=== PATIENT | female | born 1980 | race Caucasian/White ===

== ENCOUNTER 2016-06-21 21:43 | Inpatient (IN) | payer OTHER ==
[~2016-06-21] VITALS: Ht 162.6 cm; Wt 79.0 kg
[~2016-06-21 21:43] MED LIST: BACTDS PO; CEPH-443 PO; CYCL-319 PO; IBUP800T25 PO; MUPI22OI2 TOP; ULT50 PO
[2016-06-21 21:50] VITALS: Ht 162.6 cm; Wt 79.0 kg
[2016-06-21 22:35] LABS: URINE BLOOD (Dip) POC 3+ (NEGATIVE)
--- NOTE | 2016-06-21 22:54 | ERD ---
ER Documentation Chief Complaint Date/Time DATE: 06/21/16 TIME: 22:52 Chief Complaint lower abd pain 30 minutes ago HPI 35-year-old female presents here in emergency department for complaints of lower abdominal pain started 30 minutes prior to arrival. Patient had a miscarriage done 3 weeks ago, had dilatation and curettage done. Patient was supposedly 7 weeks . Today patient started to have lower abdominal pain , dysuria, blood in the urine, spotting. Patient is complaining of lower abdominal pain, cramping pain, accompanying the other symptoms. Patient did not take any medications elevated symptoms. Patient denies any nausea vomiting diarrhea or constipation. Patient denies any fever or chills. ROS All systems reviewed and are negative except as per history of present illness. Medications Home Meds Active Scripts Tramadol HCl (Tramadol HCl) 50 Mg Tablet, 50 MG PO Q4 Y for PAIN, #20 TAB Prov:DOMINGUEZ DAVIDSON PA-C 02/26/16 Cyclobenzaprine Hcl* (Cyclobenzaprine Hcl*) 10 Mg Tablet, 10 MG PO BID, #10 TAB Prov:DOMINGUEZ DAVIDSON PA-C 02/26/16 Ibuprofen* (Motrin*) 800 Mg Tab, 800 MG PO Q6, #30 TAB Prov:DOMINGUEZ DVAIDSON PA-C 02/26/16 Mupirocin* (Bactroban*) 2% -22 Gram Oint...g., 1 APPLIC TOP BID for 7 Days, EA Prov:ALEJANDRO CHANDLER PA-C 12/18/15 Sulfamethoxazole-Trimethoprim* (Bactrim* DS) 800-160 Mg Tab, 1 TAB PO BID for 5 Days, TAB Prov:ALEJANDRO CHANDLER PA-C 12/18/15 Cephalexin* (Keflex*) 500 Mg Capsule, 500 MG PO QID for 5 Days, CAP Prov:ALEJANDRO CHANDLER PA-C 12/18/15 Allergies Allergies: Coded Allergies: No Known Allergy (Verified , 05/31/16) PMhx/Soc Medical and Surgical Hx: pt denies Medical Hx, pt denies Surgical Hx History of Surgery: No Anesthesia Reaction: No Hx Neurological Disorder: No Hx Respiratory Disorders: No Hx Cardiac Disorders: No Hx Psychiatric Problems: No Hx Miscellaneous Medical Probl: No Hx Alcohol Use: No Hx Substance Use: No Hx Tobacco Use: No FmHx Family History: No coronary disease, No diabetes, No other Physical Exam Vitals Vital Signs Date Time Temp Pulse Resp B/P Pulse Ox O2 Delivery O2 Flow Rate FiO2 06/21/16 21:50 97.7 81 20 124/84 100 Physical Exam GENERAL: The patient is well developed and appropriate for usual state of health, in no apparent distress. CHEST: Clear to auscultation bilaterally. There are no rales, wheezes or rhonchi. HEART: Regular rate and rhythm. No murmurs, clicks, rubs or gallops. No S3 or S4. ABDOMEN: Soft, nontender and nondistended. Good bowel sounds. No rebound or guarding. No gross peritonitis. No gross organomegaly or masses. No Wilkes sign or McBurney point tenderness. BACK: No midline or flank tenderness. EXTREMITIES: Equal pulses bilaterally. There is no peripheral clubbing, cyanosis or edema. No focal swelling or erythema. Full range of motion. Grossly neurovascularly intact. NEURO: Alert and oriented. Cranial nerves 2-12 intact. Motor strength in all 4 extremities with 5/5 strength. Sensation grossly intact. Normal speech and gait. SKIN: There is no apparent rash or petechia. The skin is warm and dry. HEMATOLOGIC AND LYMPHATIC: There is no evidence of excessive bruising or lymphedema. No gross cervical, axillary, or inguinal lymphadenopathy. Result Diagram: 06/21/16230406/21/162304 Results 24 hrs Laboratory Tests Test 06/21/16 22:35 06/21/16 23:05 Bedside Urine Blood 3+ Bedside Urine Glucose (UA) Negative Bedside Urine Ketones (LAB) Negative Bedside Urine Leukocyte Esterase (L 1+ Bedside Urine Nitrite (LAB) Positive Bedside Urine Protein (LAB) 2+ Bedside Urine pH (LAB) 6.0 Alanine Aminotransferase (ALT/SGPT) 29IU/L Albumin 3.8g/dl Albumin/Globulin Ratio 1.40 Alkaline Phosphatase 46IU/L Anion Gap 15 Aspartate Amino Transf (AST/SGOT) 46IU/L Basophils # 0.110^3/ul Basophils % 0.3% Blood Morphology Comment Blood Urea Nitrogen 11mg/dl Calcium Level 9.3mg/dl Carbon Dioxide Level 28mmol/L Chloride Level 103mmol/L Creatinine 0.79mg/dl Direct Bilirubin 0.00mg/dl Eosinophils # 0.110^3/ul Eosinophils % 0.3% Globulin 2.70g/dl Glucose Level 108mg/dl Hematocrit 41.0% Hemoglobin 13.7g/dl Indirect Bilirubin 0.3mg/dl Lipase 78U/L Lymphocytes # 2.710^3/ul Lymphocytes % 16.0% Mean Corpuscular Hemoglobin 31.3pg Mean Corpuscular Hemoglobin Concent 33.3g/dl Mean Corpuscular Volume 93.8fl Mean Platelet Volume 7.9fl Monocytes # 0.710^3/ul Monocytes % 4.3% Neutrophils # 13.410^3/ul Neutrophils % 79.1% Nucleated Red Blood Cells # 0.010^3/ul Nucleated Red Blood Cells % 0.0/100WBC Platelet Count 18592^3/UL Potassium Level 4.2mmol/L Red Blood Count 4.3710^6/ul Red Cell Distribution Width 20.3% Sodium Level 142mmol/L Total Bilirubin 0.3mg/dl Total Protein 6.5g/dl Urine Bacteria MANY Urine Bilirubin NEGATIVE Urine Clarity CLOUDY Urine Color KARELY Urine Glucose NEGATIVE% Urine Hemoglobin 3+ Urine Ketones NEGATIVE Urine Leukocyte Esterase 1+ Urine Microscopic RBC >200/HPF Urine Microscopic WBC >200/HPF Urine Nitrite POSITIVE Urine Specific [place] >=1.030 Urine Squamous Epithelial Cells MODERATE Urine Total Protein 2+ Urine Urobilinogen 0.2 E.U./dL Urine pH 6.0 White Blood Count 17.010^3/ul Current Medications Medications (Trade) Dose Ordered Sig/Flavia Route PRN Reason Start Time Stop Time Status Last Admin Dose Admin Ceftriaxone Sodium (Rocephin) 50 ml @ 100 mls/hr ONCE ONCE IVPB 06/22/16 01:00 06/22/16 01:29 IV Rocephin was given here in emergency department for treatment for urinary tract infection. PROCEDURE: US Non-OB Pelvis. TECHNIQUE: Multiple sonographic images of the pelvis were obtained utilizing a transabdominal and endovaginal technique. The images were reviewed on a PACS workstation. COMPARISON: None. FINDINGS: The uterus is visualized and measures 9.6 x 4.7 x 5.9 cm. The endometrial echo complex heterogeneous and measures 9 mm in thickness. Doppler imaging reveals blood flow within the endometrial canal. The right ovary measures 2.8 x 2.4 x 2.3 cm. The left ovary measures 2.6 x 1.8 x 2.1 cm. Blood flow is demonstrated to both ovaries. No adnexal masses are noted. There is no evidence of free fluid. IMPRESSION: 1. Heterogeneous and vascular endometrium, suggestive of retained products of conception. 2. Normal appearance of the ovaries. RPTAT: HTAR .Fortino Alvarado MD, MD Date Time Electronically viewed and signed by .Fortino Alvarado MD, on 06/22/2016 00:32 .R/ CC: KIM ACEVEDO SENIOR MECHANICAL PROJECT ENGINEER Procedures/MDM I spoke with OB Laborist, Dr. Nava, since patient's retained products of conception and urinary tract infection, patient will be admitted to the hospital , possibly needing another dilatation and curettage. As per his recommendation, patient is to be admitted to the hospital under medicine, he will consult in this admission. I spoke with my attending physician, Dr. Levy, patient will be admitted to the hospital, will facilitate patient's admission to the hospital. Patient is stable at this time. Blood cultures were ordered, urine culture, urine GC chlamydia and IV Rocephin as per Dr. Nava's recommendation. Departure Diagnosis: Primary Impression: Retained products of conception Additional Impression: UTI (urinary tract infection) Urinary tract infection type: acute cystitis Hematuria presence: without hematuria Qualified Code: N30.00 - Acute cystitis without hematuria Condition: Fair KIM ACEVEOD NP Jun 21, 2016 22:54
[2016-06-21 23:15] LABS: BASOPHIL # 0.1 10^3/ul (0.0-0.1); BASOPHILS % 0.3 % (0.0-2.0); EOSINOPHILS # 0.1 10^3/ul (0.0-0.5); EOSINOPHILS % 0.3 % (0.0-7.0); HEMOGLOBIN 13.7 g/dl (12.0-16.0); LYMPHOCYTES # 2.7 10^3/ul (0.8-2.9); MEAN CORPUSCULAR HEMOGLOBIN 31.3 pg (29.0-33.0); MEAN CORPUSCULAR HGB CONC 33.3 g/dl (32.0-37.0); MEAN CORPUSCULAR VOLUME 93.8 fl (82.0-101.0); MEAN PLATELET VOLUME 7.9 fl (7.4-10.4); MONOCYTE # 0.7 10^3/ul (0.3-0.9); MONOCYTES % 4.3 % (0.0-11.0); NEUTROPHIL # 13.4 10^3/ul (1.6-7.5); NEUTROPHILS % 79.1 % (39.0-77.0); PLATELET COUNT 275 10^3/UL (140-440); RED BLOOD COUNT 4.37 10^6/ul (4.20-5.40); RED CELL DISTRIBUTION WIDTH 20.3 % (11.5-14.5)
[2016-06-21 23:17] LABS: CONDITION 1; LH ANALYZER COMMENTS 1
[2016-06-21 23:20] LABS: ADD UMIC YES; URINE BILIRUBIN (Dip) NEGATIVE (NEGATIVE); URINE BLOOD (Dip) 3+ (NEGATIVE); URINE GLUCOSE (Dip) NEGATIVE (NEGATIVE); URINE KETONES (Dip) NEGATIVE (NEGATIVE); URINE LEUKOCYTE ESTERASE (Dip) 1+ (NEGATIVE); URINE NITRITE (Dip) POSITIVE (NEGATIVE); URINE TOTAL PROTEIN (Dip) 2+ (NEGATIVE); URINE UROBILINOGEN (Dip) 0.2 E.U./dL (0.1-1.0)
[2016-06-21 23:23] LABS: ALBUMIN 3.8 g/dl (3.3-4.9); POTASSIUM 4.2 mmol/L (3.5-5.1)
[2016-06-21 23:25] LABS: CREATININE 0.79 mg/dl (0.44-1.00)
[2016-06-21 23:26] LABS: ALBUMIN/GLOBULIN RATIO 1.4; BILIRUBIN,INDIRECT 0.3 mg/dl (0-1.1); BILIRUBIN,TOTAL 0.3 mg/dl (0.2-1.3); CALCIUM 9.3 mg/dl (8.4-10.2); TOTAL PROTEIN 6.5 g/dl (6.1-8.1)
[2016-06-21 23:29] LABS: BACTERIA,URINE MANY; SQUAMOUS EPITHELIAL CELL,UR MODERATE; URINE COLOR AMBER (YELLOW); URINE RBCS >200 /HPF (0)
--- NOTE | 2016-06-22 00:33 | RADRPT ---
PROCEDURE: US Non-OB Pelvis. TECHNIQUE: Multiple sonographic images of the pelvis were obtained utilizing a transabdominal and endovaginal technique. The images were reviewed on a PACS workstation. COMPARISON: None. FINDINGS: The uterus is visualized and measures 9.6 x 4.7 x 5.9 cm. The endometrial echo complex heterogeneous and measures 9 mm in thickness. Doppler imaging reveals blood flow within the endometrial canal. The right ovary measures 2.8 x 2.4 x 2.3 cm. The left ovary measures 2.6 x 1.8 x 2.1 cm. Blood flow is demonstrated to both ovaries. No adnexal masses are noted. There is no evidence of free fluid. IMPRESSION: 1. Heterogeneous and vascular endometrium, suggestive of retained products of conception. 2. Normal appearance of the ovaries. RPTAT: HTAR .Fortino Alvarado MD, Date Time Electronically viewed and signed by .Fortino Alvarado MD, on 06/22/2016 00:32 .R/
[2016-06-22] MEDS ORDERED: CEFTRIAXONE 1 GM/50 ML (PMX) 50 ML IVPB ONE (01:00)
[2016-06-22 02:20] VITALS: TEMP 98.3
[2016-06-22 02:45] VITALS: BP 107/55; PULSE 67; RESP 17
[2016-06-22 08:03] VITALS: BP 111/57; RESP 17
[2016-06-22] MEDS ORDERED: HYDROCODONE/APAP (10/325) TAB PO PRN (14:30)
[2016-06-22] MEDS ORDERED: DEXTROSE 5%-LR 1,000 ML IV SCH (14:30)
--- NOTE | 2016-06-22 18:54 | HP ---
Date/Time of Note Date/Time of Note DATE: 06/22/16 TIME: 18:42 Assessment/Plan VTE Prophylaxis VTE Prophylaxis Intervention: ambulation Lines/Catheters IV Catheter Type (from Nrsg): Saline Lock Assessment/Plan Assessment/Plan 35 years old female with pelvic pressure and pain with urination ( Dysuria) and Hematuria, suprapubic tenderness as well as tenderness over the bladder in exam , Abormal UA consistent with Lower UTI She is 3 weeks post D&C. not have vaginal bleeding ever since Pain currently resolved She is afebrile, no evidence of PID or upper UTI exam consistent with lower UTI Us with vascular endometrium? , very unlikely to have retained POC. At this point, patient is stable to be discharged home and to continue antibiotics as out patient Urine Culture and sensitivity was sent Recommended Macrobid 100 mg PO BID x 7 days Advised to double her OCP dose tonight, since she has missed her pills last night with a back up contraception with condoms Recommended to be seen by her Own gas derrick operator in a couple of days after discharge and repeat her pelvic ultrasound again at the time of her next menses for follow up Precaution was given to [facility] ED if she has any fever, chills, abnormal vaginal bleeding, or any other concerns Patient verblalized understanding and agreed to comply HPI/ROS Admit Date/Time Admit Date/Time Jun 22, 2016 at 00:55 Hx of Present Illness I was called to see this patient that was currently admitted to med surg for AWARD CLERK evaluation since medicine team utilization management nurse today had not accepted to be primary and therefore patient was admitted for gas derrick operator. 35 years old s/p D&C for incomplete SAB about 3 weeks ago, presented with complaint of feeling pelvic pressure and pain symptoms as well as bleeding after urination. She denied any fever, chills, nausea, vomiting, abnormal vaginal discharge. Patient was seen in ED and was admitted after she had a pelvic ultrasound that showed thickened vascular endometrium questionable for retained POC. ES is 9 mm , Patient reports she had uneventful D&C about 3 weeks ago. She had light bleeding for one day after D&C. She had seen her AWARD CLERK the day after and was started on OCP. She had been taking OCP since. she did not take her last night pill after she felt pressure and pain symptoms with blood drops noted after she urinated since her symptoms were similar to the symptoms when she had miscarriage. She reports had 8/10 pain last night, but now reports no pain. She denies any vaginal bleeding, still complaining of pressure symptoms with urination. She denied any abnormal vaginal discharge, She has been monogamous and in stable relation ship with her partner for 18 years. She denied any fever, no chills, no flank pain, no nausea. She is hungry and wants to eat. ROS Subjective hx not possible: other (Denies any pain, nausea or any other symptoms ) Constitutional: no complaints Eyes: no complaints ENT: no complaints Respiratory: no complaints Cardiovascular: no complaints Gastrointestinal: no complaints Genitourinary: bleeding, hematuria Musculoskeletal: no complaints Skin: no complaints Neurologic: no complaints Lymphatic: no complaints Psychological: no complaints Immunologic: no complaints PMH/Family/Social Past Medical History Denies any medical problems Past Surgical History D&C x 1 about 3 weeks ago for miscarriage at about 5 weeks [facility]. S/p Breast augmentation section x 3 Family History Significant Family History: no pertinent family hx Social History Denies smoking, drinking alcohol or using any drugs. Alcohol Use: none Smoking Status: Never smoker Drug Use: none Exam/Review of Systems Vital Signs Vitals Vital Signs Date Time Temp Pulse Resp B/P Pulse Ox O2 Delivery O2 Flow Rate FiO2 06/22/16 08:03 98.6 61 17 111/57 97 06/22/16 02:45 Room Air Intake and Output 06/21/16 06/21/16 06/22/16 15:00 23:00 07:00 Intake Total 50 ml Balance 50 ml Exam Constitutional: alert, oriented, well developed Psych: nl mood/affect, no complaints Head: atraumatic, normocephalic Eyes: EOMI, nl conjunctiva, nl lids ENMT: nl external ears & nose, nl lips & teeth, nl nasal mucosa & septum Neck: non-tender, supple Respiratory: clear to auscultation, normal air movement Cardiovascular: nl pulses, regular rate and rhythm Gastrointestinal: nl liver, spleen, other (mild tenderness in the lower abdomen. moderate tenderness at suprapubic noted. SSEL Cevix is closed and long , no abnormal discharge. BME: no cervical motion tenderness, no fullness or tenderness in adnexa. bladder is tender in palpation. ), soft, tender Genitourinary - Female: nl adnexae, nl external genitalia, other (Tenderness in palpation of the bladder from vagina noted. no fulllness or tenderness in adnexa noted. uterus non tender) Extremities: normal pulses Neurological: ELECTRONIC VIDEO GAMES SERVICER II-XII intact, nl mental status, nl speech, nl strength Skin: nl turgor, rash or lesions Labs Result Diagram: 06/21/16230406/21/162304 Medications Medications Current Medications Acetaminophen/ Hydrocodone Bitart 1 tab 1 tab Q6H PRN PO PAIN; Start 06/22/16 at 14:30 Dextrose/Lactated Ringer's (D5-Lr) 1,000 ml @ 125 mls/hr Q8H IV Last administered on 06/22/16t 14:33; Admin Dose 125 MLS/HR; Start 06/22/16 at 14:30 Hematology - 72 Hrs Test 06/21/16 23:05 Basophils # 0.110^3/ul (0.0-0.1) Basophils % 0.3% (0.0-2.0) Blood Morphology Comment Eosinophils # 0.110^3/ul (0.0-0.5) Eosinophils % 0.3% (0.0-7.0) Hematocrit 41.0% (37.0-47.0) # Hemoglobin 13.7g/dl (12.0-16.0) # Lymphocytes # 2.710^3/ul (0.8-2.9) Lymphocytes % 16.0% (15.0-51.0) Mean Corpuscular Hemoglobin 31.3pg (29.0-33.0) Mean Corpuscular Hemoglobin Concent 33.3g/dl (32.0-37.0) Mean Corpuscular Volume 93.8fl (82.0-101.0) Mean Platelet Volume 7.9fl (7.4-10.4) Monocytes # 0.710^3/ul (0.3-0.9) Monocytes % 4.3% (0.0-11.0) Neutrophils # 13.410^3/ul (1.6-7.5) H Neutrophils % 79.1% (39.0-77.0) H Nucleated Red Blood Cells # 0.010^3/ul (0.0-0.0) Nucleated Red Blood Cells % 0.0/100WBC (0.0-0.0) Platelet Count 43953^3/UL (140-440) Red Blood Count 4.3710^6/ul (4.20-5.40) Red Cell Distribution Width 20.3% (11.5-14.5) #H White Blood Count 17.010^3/ul (4.8-10.8) H Chemistry Test 06/21/16 23:05 06/22/16 17:25 Alanine Aminotransferase (ALT/SGPT) 29IU/L (13-69) Albumin 3.8g/dl (3.3-4.9) Albumin/Globulin Ratio 1.40 Alkaline Phosphatase 46IU/L (42-121) Anion Gap 15 (8-16) Aspartate Amino Transf (AST/SGOT) 46IU/L (15-46) Blood Urea Nitrogen 11mg/dl (7-20) Calcium Level 9.3mg/dl (8.4-10.2) Carbon Dioxide Level 28mmol/L (21-31) Chloride Level 103mmol/L (97-110) Creatinine 0.79mg/dl (0.44-1.00) Direct Bilirubin 0.00mg/dl (0.00-0.20) Globulin 2.70g/dl (1.3-3.2) Glucose Level 108mg/dl (70-220) Indirect Bilirubin 0.3mg/dl (0-1.1) Lipase 78U/L (23-300) Potassium Level 4.2mmol/L (3.5-5.1) Sodium Level 142mmol/L (135-144) Total Bilirubin 0.3mg/dl (0.2-1.3) Total Protein 6.5g/dl (6.1-8.1) Beta HCG, Quantitative < 2.4mIU/ml Procedures Procedures PROCEDURE: US Non-OB Pelvis. TECHNIQUE: Multiple sonographic images of the pelvis were obtained utilizing a transabdominal and endovaginal technique. The images were reviewed on a PACS workstation. COMPARISON: None. FINDINGS: The uterus is visualized and measures 9.6 x 4.7 x 5.9 cm. The endometrial echo complex heterogeneous and measures 9 mm in thickness. Doppler imaging reveals blood flow within the endometrial canal. The right ovary measures 2.8 x 2.4 x 2.3 cm. The left ovary measures 2.6 x 1.8 x 2.1 cm. Blood flow is demonstrated to both ovaries. No adnexal masses are noted. There is no evidence of free fluid. IMPRESSION: 1. Heterogeneous and vascular endometrium, suggestive of retained products of conception. 2. Normal appearance of the ovaries. RPTAT: HTAR UA: + Nitrate. + Lukocyte estrase and > 200 WBC and RBC , cx sent and pending JEN WILSON MD Jun 22, 2016 18:53
== END 2016-06-22 20:30 | disposition home or self-care (01) | DRG 690 ==
LOC: FTE 21:43 → MS1 06-22 00:55 → UNDOADMIN 06-22 00:55
PROVIDERS: ADMIT Obstetrics & Gynecology; ATTEND Obstetrics & Gynecology
DX: N39.0 Urinary tract infection, site not specified (principal); Z87.59 Personal history of other complications of pregnancy, childbirth and the puerperium; Z98.890 Other specified postprocedural states
CPT/HCPCS: 36415; 76830; 76856; 80053; 81001; 81003; 83690; 84702; 85025; 86900; 86901; 87040; 87086; 87591; 96365; J0696; J7121

== ENCOUNTER 2016-06-30 10:33 | Emergency (ER) | payer OTHER ==
[~2016-06-30] VITALS: Wt 77.5 kg
[2016-06-30] MEDS ORDERED: ONDANSETRON 4 MG INJ IV STA (13:05)
[2016-06-30] MEDS ORDERED: SOD CHLORIDE 0.9% 1,000 ML IV STA (13:05)
[2016-06-30] MEDS ORDERED: morphine 4 MG/ML VIAL IV STA (13:05)
[2016-06-30 13:33] LABS: ADD UMIC YES; URINE BILIRUBIN (Dip) NEGATIVE (NEGATIVE); URINE BLOOD (Dip) 2+ (NEGATIVE); URINE COLOR LT. YELLOW (YELLOW); URINE GLUCOSE (Dip) NEGATIVE (NEGATIVE); URINE KETONES (Dip) NEGATIVE (NEGATIVE); URINE LEUKOCYTE ESTERASE (Dip) NEGATIVE (NEGATIVE); URINE NITRITE (Dip) NEGATIVE (NEGATIVE); URINE TOTAL PROTEIN (Dip) NEGATIVE (NEGATIVE); URINE UROBILINOGEN (Dip) 0.2 E.U./dL (0.1-1.0)
[2016-06-30 13:55] LABS: BASOPHILS % 0.3 % (0.0-2.0); EOSINOPHILS # 0.1 10^3/ul (0.0-0.5); EOSINOPHILS % 0.7 % (0.0-7.0); HEMATOCRIT 43.7 % (37.0-47.0); HEMOGLOBIN 14.4 g/dl (12.0-16.0); LYMPHOCYTES # 2.7 10^3/ul (0.8-2.9); LYMPHOCYTES % 27.6 % (15.0-51.0); MEAN CORPUSCULAR HEMOGLOBIN 30.8 pg (29.0-33.0); MEAN CORPUSCULAR VOLUME 93.6 fl (82.0-101.0); MEAN PLATELET VOLUME 8.3 fl (7.4-10.4); MONOCYTE # 0.4 10^3/ul (0.3-0.9); MONOCYTES % 4.4 % (0.0-11.0); NEUTROPHIL # 6.6 10^3/ul (1.6-7.5); PLATELET COUNT 315 10^3/UL (140-440); RED BLOOD COUNT 4.67 10^6/ul (4.20-5.40); RED CELL DISTRIBUTION WIDTH 18.6 % (11.5-14.5); UNCORRECTED WBC 9.9 10^3/ul (4.8-10.8); WHITE BLOOD COUNT 9.9 10^3/ul (4.8-10.8)
[2016-06-30 14:00] LABS: CONDITION 1; LH ANALYZER COMMENTS 1
[2016-06-30 14:04] LABS: ALBUMIN 4.3 g/dl (3.3-4.9)
[2016-06-30 14:05] LABS: POTASSIUM 3.7 mmol/L (3.5-5.1)
[2016-06-30 14:06] LABS: INR 0.82; PROTIME 11.3 Sec (12.2-14.2); PT RATIO 0.9
[2016-06-30 14:06] LABS: BACTERIA,URINE MODERATE
[2016-06-30 14:07] LABS: ALBUMIN/GLOBULIN RATIO 1.43; BILIRUBIN,INDIRECT 0.3 mg/dl (0-1.1); BILIRUBIN,TOTAL 0.3 mg/dl (0.2-1.3); CREATININE 0.75 mg/dl (0.44-1.00); TOTAL PROTEIN 7.3 g/dl (6.1-8.1)
[2016-06-30 14:08] LABS: CALCIUM 9.5 mg/dl (8.4-10.2)
--- NOTE | 2016-06-30 14:56 | RADRPT ---
PROCEDURE: US Pelvis. TECHNIQUE: The pelvis was evaluated with transabdominal and transvaginal sonography in the axial a nd sagittal planes. COMPARISON: Pelvic ultrasound dated 06/21/2016 which demonstrated findings suggestive of retained products of conception. FINDINGS: Uterus: 9.2 x 4.1 x 4.5 cm. Endometrium: 3.0 mm. Prior was 9 mm with flow visualized. Right ovary: 2.5 x 1.9 x 2.4 cm. Left ovary: 2.7 x 1.9 x 2.0 cm. Uterine masses: None. Ovarian masses: None. Color Doppler and pulsed Doppler sonography demonstrate normal flow to the ova miquel. Other pelvic masses: None. Free fluid: None. IMPRESSION: 1. Normal pelvic ultrasound. 2. Previously noted findings indicating retained products of conception are no longer present. End ometrial thickness is now 3 mm. RPTAT: QQ .Juliocesar Aleman MD, MD Date Time Electronically viewed and signed by .Juliocesar Aleman MD, on 06/30/2016 14:56 .R/
--- NOTE | 2016-06-30 16:08 | ERD ---
ER Documentation Chief Complaint Date/Time DATE: 06/30/16 TIME: 16:05 Chief Complaint vag bleeding every day for 1 month. lower abd pain, poss retained POC HPI 35-year-old woman status post D&C here for continued vaginal bleeding. She has not been using her oral contraceptive medications as previously prescribed. She has had mild pelvic pain and cramping, no fevers or chills, no dysuria, no chest pain or shortness of breath, no headache or blurry vision. Patient denies dizziness or loss of consciousness. ROS All systems reviewed and are negative except as per history of present illness. Medications Home Meds Discontinued Scripts Tramadol HCl (Tramadol HCl) 50 Mg Tablet, 50 MG PO Q4 Y for PAIN, #20 TAB Prov:DOMINGUEZ DAVIDSON PA-C 02/26/16 Cyclobenzaprine Hcl* (Cyclobenzaprine Hcl*) 10 Mg Tablet, 10 MG PO BID, #10 TAB Prov:DOMINGUEZ DAVIDSON PA-C 02/26/16 Ibuprofen* (Motrin*) 800 Mg Tab, 800 MG PO Q6, #30 TAB Prov:DOMINGUEZ DAVIDSON PA-C 02/26/16 Mupirocin* (Bactroban*) 2% -22 Gram Oint...g., 1 APPLIC TOP BID for 7 Days, EA Prov:ALEJANDRO CHANDLER PA-C 12/18/15 Sulfamethoxazole-Trimethoprim* (Bactrim* DS) 800-160 Mg Tab, 1 TAB PO BID for 5 Days, TAB Prov:ALEJANDRO CHANDLER PA-C 12/18/15 Cephalexin* (Keflex*) 500 Mg Capsule, 500 MG PO QID for 5 Days, CAP Prov:ALEJANDRO CHANDLER PA-C 12/18/15 Allergies Allergies: Coded Allergies: No Known Allergy (Verified , 05/31/16) PMhx/Soc woman status post spontaneous D&C for about 4 weeks ago History of Surgery: Yes (D AND C 3WEEKS AGO) Anesthesia Reaction: No Hx Neurological Disorder: No Hx Respiratory Disorders: No Hx Cardiac Disorders: No Hx Psychiatric Problems: No Hx Miscellaneous Medical Probl: No Hx Alcohol Use: No Hx Substance Use: No Hx Tobacco Use: No Smoking Status: Never smoker FmHx Family History: No diabetes Physical Exam Vitals Vital Signs Date Time Temp Pulse Resp B/P Pulse Ox O2 Delivery O2 Flow Rate FiO2 06/30/16 16:23 78 20 130/76 99 Room Air 06/30/16 10:40 97.9 78 20 131/84 99 Physical Exam GENERAL: Well-developed, well-nourished, well-hydrated, in no apparent distress , looks nontoxic in appearance HEENT: Moist mucous membranes, pink conjunctiva, no cervical spine tenderness or step-off deformities, no goiter, no jaundice or icterus, extraocular movements intact without pain. No submandibular induration, and no pharyngeal erythema NEURO: Alert and oriented 3, cranial nerves II through XII intact bilaterally, pupils equal round reactive to light, no focal deficits or facial asymmetry, sensation intact distally Strength 5/5 in upper and lower extremities bilaterally CARDIAC: Regular rate and rhythm, no murmurs rubs or gallops LUNGS: Clear bilaterally no wheezing crackles or stridor ABDOMEN: Soft nontender, no guarding, no rigidity, no rebound, no psoas sign no obturator sign. Normoactive bowel sounds SKIN: Warm and dry to touch, no abrasions, contusions, or hematomas, no lacerations, no ecchymosis, no target lesions, and without ulcers EXTREMITIES: No clubbing cyanosis or edema, calves are bilaterally symmetrical, no Homans sign, no popliteal cord sign. Distal pulses equal and bilateral PSYCH: Normal affect without agitation or irritability Result Diagram: 06/30/16 1325 06/30/16 1325 Results 24 hrs Laboratory Tests Test 06/30/16 13:05 06/30/16 13:25 Urine Bacteria MODERATE Urine Bilirubin NEGATIVE Urine Clarity CLEAR Urine Color LT. YELLOW Urine Epithelial Cells MODERATE Urine Glucose NEGATIVE% Urine Hemoglobin 2+ Urine Ketones NEGATIVE Urine Leukocyte Esterase NEGATIVE Urine Microscopic RBC 2-5/HPF Urine Microscopic WBC 2-5/HPF Urine Nitrite NEGATIVE Urine Specific [place] <=1.005 Urine Total Protein NEGATIVE Urine Urobilinogen 0.2 E.U./dL Urine pH 6.0 Alanine Aminotransferase (ALT/SGPT) 20IU/L Albumin 4.3g/dl Albumin/Globulin Ratio 1.43 Alkaline Phosphatase 63IU/L Anion Gap 18 Aspartate Amino Transf (AST/SGOT) 35IU/L Basophils # 0.010^3/ul Basophils % 0.3% Blood Morphology Comment Blood Urea Nitrogen 11mg/dl Calcium Level 9.5mg/dl Carbon Dioxide Level 29mmol/L Chloride Level 101mmol/L Creatinine 0.75mg/dl Direct Bilirubin 0.00mg/dl Eosinophils # 0.110^3/ul Eosinophils % 0.7% Globulin 3.00g/dl Glucose Level 86mg/dl Hematocrit 43.7% Hemoglobin 14.4g/dl INR International Normalized Ratio 0.82 Indirect Bilirubin 0.3mg/dl Lipase 88U/L Lymphocytes # 2.710^3/ul Lymphocytes % 27.6% Mean Corpuscular Hemoglobin 30.8pg Mean Corpuscular Hemoglobin Concent 33.0g/dl Mean Corpuscular Volume 93.6fl Mean Platelet Volume 8.3fl Monocytes # 0.410^3/ul Monocytes % 4.4% Neutrophils # 6.610^3/ul Neutrophils % 67.0% Nucleated Red Blood Cells # 0.010^3/ul Nucleated Red Blood Cells % 0.0/100WBC Platelet Count 64473^3/UL Potassium Level 3.7mmol/L Prothrombin Time 11.3Sec Prothrombin Time Ratio 0.9 Red Blood Count 4.6710^6/ul Red Cell Distribution Width 18.6% Sodium Level 144mmol/L Total Bilirubin 0.3mg/dl Total Protein 7.3g/dl White Blood Count 9.910^3/ul Current Medications Medications (Trade) Dose Ordered Sig/Flavia Route PRN Reason Start Time Stop Time Status Last Admin Dose Admin Sodium Chloride (NS) 1,000 ml @ 1,000 mls/hr Q1H STAT IV 06/30/16 13:05 06/30/16 14:04 DC 06/30/16 15:06 Morphine Sulfate (morphine) 4 mg ONCE STAT IV 06/30/16 13:05 06/30/16 13:08 DC Ondansetron HCl (Zofran Inj) 4 mg ONCE STAT IV 06/30/16 13:05 06/30/16 13:08 DC Procedures/[facility] IV line was established patient was placed on manager monitoring rhythm strip revealed a sinus rhythm at about 80 bpm with upright P and T waves. Patient was afebrile. I administered 1 L normal saline intravenously and patient refused analgesics. Urine analysis and urine test were negative. Her patient office rep was consulted and saw the patient at the bedside, pelvic examination was performed by him and his recommendations were given to the patient. Patient is to begin oral contraceptives today as previously prescribed. CBC and electrolytes were normal, urine analysis was negative for infection. Liver function tests are normal, coagulation profile was normal. Differential diagnoses considered, included but not limited to acute coronary syndrome, pulmonary embolism, aortic dissection, abdominal aortic aneurysm, sepsis, stroke, meningitis, encephalitis, pneumonia, appendicitis, cholecystitis , bowel obstruction, pyelonephritis, nephrolithiasis, cystitis, as well as metabolic, hematologic, and electrolyte abnormalities. As well as abscess, cellulitis, fractures, and dislocations. Patient feels much better at this time, and vital signs are normal, symptoms have improved. I did give strict instructions to return to the ED if symptoms continue or worsen, patient will otherwise follow-up with primary care physician. Patient understood instructions and agreed to plan. Departure Diagnosis: Primary Impression: Postoperative pain Additional Impression: Vaginal bleeding Condition: Good Patient Instructions: Post Op Wound Check, Bleeding ROSALBA RIVERA MD Jun 30, 2016 16:08
[2016-06-30 16:23] VITALS: BP 130/76; PULSE 78; RESP 20
--- NOTE | 2016-06-30 18:02 | CONS ---
DATE OF ADMISSION: 06/30/2016 DATE OF CONSULTATION: 06/30/2016 TYPE OF CONSULTATION: Emergency consultation. HISTORY OF PRESENT ILLNESS: This patient is a 35-year-old old 5, para 4 , 1, who originally came to the emergency room on 05/31/2016 due to vaginal bleeding and ultrasound showed an incomplete . She underwent a dilatation and curettage on that date and discharged home without any complication. Again on 06/22/2016, she came back complaining of vaginal bleeding and had an ultrasound which basically showed an empty uterus, but there was a comment regarding heterogeneous growth of the endometrium possibility of could not be ruled out and the patient was concerned about this report and called repeatedly and today came to the emergency room again due to some vaginal spotting. Ultrasound did not show any evidence of or incomplete . Her beta hCG was negative. PHYSICAL EXAMINATION: HEENT: Normal. She did not seem to be anemic, her abdomen was soft. PELVIC: On pelvic exam, she had slight vaginal bleeding and the uterus was normal. Uterus and ovaries and adnexa appeared to be normal so the patient was given reassurance. She is supposed to continue her control pill and to be followed by her own physician in their office. Dictated By: JAE HOFFMANN/NTS Conf#: [id number] DID#: [id number]
== END 2016-06-30 16:24 | disposition home or self-care (01) ==
LOC: E/R 10:33
DX: G89.18 Other acute postprocedural pain (principal); R40.2142 Coma scale, eyes open, spontaneous, at arrival to emergency department; R40.2252 Coma scale, best verbal response, oriented, at arrival to emergency department; R40.2362 Coma scale, best motor response, obeys commands, at arrival to emergency department; R10.2 Pelvic and perineal pain
CPT/HCPCS: 76830; 76856; 80053; 81001; 83690; 85025; 85610; 86850; 86870; 86900; 86901; 86902; J7030; 36415; 81003

== ENCOUNTER 2017-08-21 11:18 | Emergency (ER) | END 2017-08-21 13:25 | disposition home or self-care (01) ==

== ENCOUNTER 2017-09-04 09:44 | Emergency (ER) | END 2017-09-04 10:30 | disposition home or self-care (01) ==